=== PATIENT | male | born 1965 | race Caucasian/White ===

== ENCOUNTER 2024-08-22 07:44 | Emergency (ER) | payer SELFPAY ==
[2024-08-22] MEDS ORDERED: methylPREDNISolone Sod Succ/PF 125 MG/2 ML VIAL ONE (08:32)
[2024-08-22] MEDS ORDERED: Sodium Chloride 0.9% 1,000 ML ONE ×2 (08:32→09:27)
[2024-08-22] MEDS ORDERED: Acetaminophen 500 MG TAB ONE (08:32)
[2024-08-22] MEDS ORDERED: Ipratropium/Albuterol 3 ML NEB ONE ×2 (08:32→10:03)
[2024-08-22 08:48] LABS: Hematocrit 52.9 % (42.0-52.0); Hemoglobin 16.5 g/dL (14.0-18.0); Mean Corpuscular HGB CONC 31.1 g/dL (32.0-36.0); Mean Corpuscular Hemoglobin 27.9 pg (27.0-31.0); Mean Corpuscular Volume 89.8 fl (78.0-98.0); Platelet Count 158 10x3/uL (130-400); RBC Distribution Width 12.3 % (11.5-14.5); Red Blood Cell (RBC) Count 5.89 mill/uL (4.70-6.10); White Blood Cell (WBC) Count 11.1 10x3/uL (4.8-10.8)
[2024-08-22 08:50] LABS: MDiff Complete? YES; Manual Diff?? YES
[2024-08-22 08:51] LABS: Troponin I Less than 0.010 ng/mL (< 0.028)
[2024-08-22 08:56] LABS: ALT (SGPT) 26 U/L (8-55); AST (SGOT) 19 U/L (5-34); Albumin 4.1 g/dL (3.4-4.8); Alkaline Phosphatase 68 U/L (40-110); Anion Gap 16 mmol/L (10-20); BUN (Urea Nitrogen) 14 mg/dL (8.4-25.7); Bilirubin, Total 0.7 mg/dL (0.2-1.2); Calc. Creatinine Clearance 0 mL/min (70-130); Calcium 9.7 mg/dL (7.8-10.44); Carbon Dioxide 22 mmol/L (23-31); Chloride 103 mmol/L (98-107); Estimated GFR 98; Globulin 3.8 g/dL (2.4-3.5); Glucose 132 mg/dL (80-115); Potassium 4.1 mmol/L (3.5-5.1); Protein, Total 7.9 g/dL (5.8-8.1); Sodium 137 mmol/L (136-145)
[2024-08-22 08:58] LABS: Band 1 % (5-11); Eosinophils 3 % (0-10); Lymphocytes 4 % (21-51); Monocytes 5 % (0-10); Neutrophil 87 % (42-75)
[2024-08-22 08:59] LABS: RBC Morph Comment Within Normal Limits
[2024-08-22 09:00] LABS: Platelet Adequacy Comment Appears Adequate
[2024-08-22] MEDS ORDERED: Albuterol 2.5 MG (3 mL) NEB ONE (09:08)
[2024-08-22] MEDS ORDERED: Budesonide 0.5 MG/2 ML NEB ONE (09:08)
[2024-08-22] MEDS ORDERED: Oseltamivir 75 MG CAP ONE (09:09)
[2024-08-22 10:19] LABS: Bilirubin Negative (Negative); Blood, Urine Negative (Negative); Clarity Clear (Clear); Glucose, Urine (Dipstick) Negative (Negative); Ketone, Urine Negative (Negative); Leukocyte Negative (Negative); Nitrite Negative (Negative); Protein, Urine (Dipstick) Negative (Neg-Trace); Urobilinogen 0.2 mg/dL (Less than 2); pH, Urine 5.5 (5.0-9.0)
[2024-08-22 10:22] LABS: CAUTI Indications for Culture Fever or rigors; RBC/HPF 0-3 HPF (0-3); Squamous Epithelial 0-3 HPF (0-3); WBC/HPF 0-3 HPF (0-3)
[2024-08-22 10:23] LABS: Bacteria/HPF Rare-Few HPF (None Seen); Urine Culture Reflex No No
[2024-08-22 10:27] LABS: Amphetamine Not Detected (NotDetected); Barbiturates Screen Not Detected (NotDetected); Benzodiazepine Screen Not Detected (NotDetected); Cocaine Metabolite Screen Not Detected (NotDetected); Methadone Not Detected (NotDetected); Methamphetamine Not Detected (NotDetected); Opiate Screen Not Detected (NotDetected); Oxycodone Screen Not Detected (NotDetected); Phencyclidine (PCP) Not Detected (NotDetected); THC/Cannabinoid Screen Not Detected (NotDetected); Tricyclic Screen Not Detected (NotDetected)
== END 2024-08-22 11:21 | disposition home or self-care (01) ==
LOC: NAV ERS 07:44
DX: J10.1 Influenza due to other identified influenza virus with other respiratory manifestations (principal); J45.901 Unspecified asthma with (acute) exacerbation; R00.0 Tachycardia, unspecified
CPT/HCPCS: 71046; 80053; 80306; 81001; 83605; 84443; 84484; 85025; 85379; 87070; 87205; 87428; 93005; 94640; 96361; 96374; J2919; J7030; J7611; J7620; J7626